=== PATIENT | male | born 1940 | race Caucasian/White ===

== ENCOUNTER 2018-10-17 03:28 | Inpatient (IN) | payer MEDICARE, OTHER ==
[2018-10-17] VITALS (8 sets, daily range): BP systolic 90–142; BP diastolic 47–72
[~2018-10-17] VITALS: Ht 165.1 cm; Wt 74.7 kg
[2018-10-17 03:44] LABS: GLUCOSE,POINT OF CARE 66 MG/DL (70-110)
[2018-10-17 04:04] LABS: GLUCOSE,POINT OF CARE 66 MG/DL (70-110)
[2018-10-17] MEDS ORDERED: DEXTROSE 50%-WATER 25 GM/50 ML SYRINGE IVP ONE (04:15)
[2018-10-17] MEDS ORDERED: ONDANSETRON HCL 4 MG/2 ML VIAL IVP ONE (04:15)
[2018-10-17 04:27] LABS: HEMATOCRIT 39.7 % (41-53); HEMOGLOBIN 13.4 g/dL (13.5-17.5); MEAN CORPUSCULAR HEMOGLOBIN 30.8 pg (26.0-34.0); MEAN CORPUSCULAR HGB CONC 33.8 G/dL (31.0-37.0); MEAN CORPUSCULAR VOLUME 91 fL (80-100); PLATELET COUNT (AUTO) 254 K/uL (150-450); RED BLOOD CELL COUNT(AUTO) 4.36 MIL/uL (4.50-5.90); RED CELL DISTRIBUTION WIDTH 19.7 % (11.5-14.5)
[2018-10-17 04:37] LABS: CALCIUM, TOTAL 8.4 mg/dL (8.8-10.5); CREATININE 13.05 mg/dL (0.60-1.30); POTASSIUM 5.6 mmol/L (3.5-5.1)
[2018-10-17 04:41] LABS: INR 1.4 (0.9-1.1)
[2018-10-17 04:49] LABS: BAND NEUTROPHILS % (MANUAL) 31 % (0-5); LYMPHOCYTES % (MANUAL) 4 % (22-44); MONOCYTES % (MANUAL) 5 % (2-9); SEGMENTED NEUTROPHILS % 60 % (40-70)
[2018-10-17 04:49] LABS: GLUCOSE,POINT OF CARE 169 MG/DL (70-110)
[2018-10-17 04:50] LABS: PLATELET MORPHOLOGY COMMENT GIANT PLTS PRESENT
[2018-10-17] MEDS ORDERED: AZITHROMYCIN 500 MG/NS 250 ML IV ONE (05:00)
[2018-10-17 05:03] LABS: ALBUMIN 1.2 g/dL (3.4-5.0); BILIRUBIN,TOTAL 5.4 mg/dL (0.1-1.0); TOTAL PROTEIN, SERUM 6.8 g/dL (6.4-8.2)
[2018-10-17] MEDS ORDERED: ACETAMINOPHEN 325 MG TABLET PO PRN (05:30)
[2018-10-17] MEDS ORDERED: ALBUTEROL SULFATE 2.5 MG/0.5 ML NEB SOLUTION NEB ONE (05:30)
[2018-10-17] MEDS ORDERED: IPRATROPIUM BROMIDE 0.5 MG/2.5 ML NEB SOLUTION NEB ONE (05:30)
[2018-10-17] MEDS ORDERED: SODIUM POLYSTYRENE SULFONATE 15 GM/60 ML SUSPENSION BOTTLE PO ONE (05:30)
[2018-10-17] MEDS ORDERED: ONDANSETRON HCL 4 MG/2 ML VIAL IVP PRN (05:30)
[2018-10-17] MEDS ORDERED: 0.9% SODIUM CHLORIDE 10 ML SYRINGE IVP PRN (05:30)
[2018-10-17] MEDS ORDERED: FUROSEMIDE 40 MG/4 ML VIAL IVP ONE (05:30)
[2018-10-17 05:40] LABS: LACTIC ACID 2.6 mmol/L (0.4-2.0)
[2018-10-17 05:53] LABS: INFLUENZA TYPE A NEGATIVE FOR TYPE A (NEGATIVE); INFLUENZA TYPE B NEGATIVE FOR TYPE B (NEGATIVE)
[2018-10-17] MEDS ORDERED: MAGNESIUM HYDROXIDE SUSPENSION 30 ML UDCUP PO PRN (06:00)
[2018-10-17] MEDS ORDERED: IPRATROPIUM BROMIDE 0.5 MG/2.5 ML NEB SOLUTION NEB PRN (06:00)
[2018-10-17] MEDS ORDERED: OxyCODONE HCL/ACETAMINOPHEN 5-325 MG TABLET PO PRN (06:00)
[2018-10-17] MEDS ORDERED: ZOLPIDEM TARTRATE 5 MG TABLET PO PRN (06:00)
[2018-10-17] MEDS ORDERED: IBUPROFEN 600 MG TABLET PO PRN (06:00)
[2018-10-17] MEDS ORDERED: BISACODYL 10 MG RECTAL RECTAL SUPPOSITORY PR PRN (06:00)
[2018-10-17] MEDS ORDERED: ALBUTEROL SULFATE 2.5 MG/0.5 ML NEB SOLUTION NEB PRN (06:00)
[2018-10-17 06:49] LABS: APPEARANCE,URINE CLOUDY (CLEAR); BILIRUBIN,URINE NEGATIVE (NEGATIVE); GLUCOSE, URINE (UA) NEGATIVE (NEGATIVE); KETONES,URINE NEGATIVE (NEGATIVE); LEUKOCYTE ESTERASE ,URINE NEGATIVE (NEGATIVE); NITRATE,URINE NEGATIVE (NEGATIVE); OCCULT BLOOD,URINE LARGE (NEGATIVE); PH,URINE 7.5 (5.0-8.0); PROTEIN,URINE POS 1+ (NEGATIVE); UROBILINOGEN,URINE 0.2 mg/dL (<=1.0)
[2018-10-17 06:58] LABS: BACTERIA,URINE Rare /HPF (None Seen); RBC,URINE >100 /HPF (0-2)
[2018-10-17 06:59] LABS: RENAL EPITHELIAL CELLS,URINE Few /LPF (None Seen); SQUAMOUS EPITHELIAL CELL,UR Rare /LPF (None Seen)
[2018-10-17 07:00] LABS: COARSE GRANULAR CASTS,URINE 0-2 /LPF (None Seen)
[2018-10-17] MEDS ORDERED: VANCOMYCIN HCL 1 GM/D5% WATER 200 ML IV PRN (07:30)
[2018-10-17] MEDS ORDERED: OXYGEN THERAPY IH SCH (08:00)
[2018-10-17] MEDS ORDERED: VANCOMYCIN HCL 1 GM/D5% WATER 200 ML IV ONE (08:00)
[2018-10-17] MEDS: PANTOPRAZOLE SODIUM 40 MG DR TABLET PO SCH (09:09)
[2018-10-17] MEDS ORDERED: SODIUM CHLORIDE 0.9% 250 ML IV ONE ×3 (09:12→19:56)
[2018-10-17] MEDS: LACTULOSE 20 GM/30 ML SOLUTION UDCUP PO SCH (11:40)
[2018-10-17] MEDS: CALCIUM ACETATE 667 MG CAPSULE PO SCH ×2 (12:00→17:30)
[2018-10-17] MEDS: ONDANSETRON HCL 4 MG/2 ML VIAL IVP PRN (12:05)
[2018-10-17] MEDS: PIPERACILLIN SODIUM/TAZOBACTAM 2.25 GM in DEXTROSE 5%-WATER 50 ML IV SCH ×2 (12:08→23:20)
[2018-10-17 14:47] LABS: ABG A-A DIFF O2 65.1 mmHg (10-20.0); ABG BASE EXCESS -8.3 mmol/L (-2.0-3.0); ABG HCO3 18.2 mmol/L (22.0-26.0); ABG METHEMOGLOBIN 0.3 % (0.0-1.5); ABG OXYHEMOGLOBIN 73.7 % (94.0-100.0); ABG PCO2 33 mmHg (35-45); ABG PH 7.341 (7.35-7.450); ABG TOTAL HEMOGLOBIN 13.5 G/dL (12.0-18.0); PO2, ARTERIAL BG 45.2 mmHg (75.0-83.0); SOURCE, BLOOD GAS ARTERIAL
[2018-10-17 14:49] LABS: ABG OXYGEN SATURATION 74.7 % (95.0-98.0); SITE, BLOOD GAS RT BRACHIAL
[2018-10-17 15:18] LABS: SPECIMENTYPE,BODY FLUID PERITONEAL
[2018-10-17] MEDS ORDERED: AMIODARONE HCL 150 MG in DEXTROSE 5%-WATER 97 ML IV ONE (15:50)
[2018-10-17] MEDS ORDERED: AMIODARONE HCL 360 MG in DEXTROSE 5%-WATER 242.8 ML IV ONE (16:00)
[2018-10-17] MEDS ORDERED: SODIUM CHLORIDE 0.9% 500 ML IV ONE (16:40)
[2018-10-17 16:46] LABS: APPEARANCE,UNSPUN,BODY FLUID HAZY (CLEAR); COLOR,BODY FLUID COLORLESS (LT YELLOW); TOTAL VOLUME,BODY FLUID 30 mL
[2018-10-17 16:49] LABS: ABG A-A DIFF O2 253.2 mmHg (10-20.0); ABG BASE EXCESS -8.4 mmol/L (-2.0-3.0); ABG CARBOXYHEMOGLOBIN 0.9 % (0.0-1.5); ABG HCO3 18.4 mmol/L (22.0-26.0); ABG METHEMOGLOBIN 0.1 % (0.0-1.5); ABG OXYGEN CONTENT 16.4 mL/dL (15.0-23.0); ABG OXYGEN SATURATION 89.7 % (95.0-98.0); ABG OXYHEMOGLOBIN 88.8 % (94.0-100.0); ABG PCO2 33 mmHg (35-45); ABG PH 7.344 (7.35-7.450); ABG TOTAL HEMOGLOBIN 13.1 G/dL (12.0-18.0); PO2, ARTERIAL BG 66.5 mmHg (75.0-83.0); SOURCE, BLOOD GAS ARTERIAL
[2018-10-17 16:50] LABS: APPEARANCE,SPUN,BODY FLUID CLEAR (CLEAR)
[2018-10-17 16:50] LABS: O2 DEVICE,BLOOD GAS VENTI MASK (ROOM AIR); SITE, BLOOD GAS LFT RADIAL
[2018-10-17 16:53] LABS: WBC, BODY FLUID 6 /cu. mm.
[2018-10-17 16:54] LABS: BASOPHILS,BODY FLUID 0 %; EOSINOPHILS,BF (ANAL) 0 %; LYMPHOCYTES,BODY FLUID 15 %; MONOCYTES,BODY FLUID 5 %; NEUTROPHILS,BODY FLUID 80 %; OTHER CELLS,BODY FLUID MESOTHELIALS
[2018-10-17] MEDS: NYSTATIN 500,000 UNITS/5 ML SUSPENSION UDCUP PO SCH (20:50)
[2018-10-17] MEDS: MORPHINE SULFATE 4 MG/ML SYRINGE IVP PRN (21:13)
[2018-10-17 21:24] LABS: CALCIUM, TOTAL 8.1 mg/dL (8.8-10.5); CREATININE 12.06 mg/dL (0.60-1.30); MAGNESIUM 2.2 mg/dL (1.80-2.40); POTASSIUM 5.2 mmol/L (3.5-5.1)
[2018-10-17] MEDS ORDERED: AMIODARONE HCL 540 MG in DEXTROSE 5%-WATER 239.2 ML IV ONE (22:00)
[2018-10-18] VITALS (10 sets, daily range): BP systolic 101–150; BP diastolic 23–69
[2018-10-18 05:08] LABS: HEMATOCRIT 38.1 % (41-53); HEMOGLOBIN 12.7 g/dL (13.5-17.5); MEAN CORPUSCULAR HEMOGLOBIN 29.9 pg (26.0-34.0); MEAN CORPUSCULAR HGB CONC 33.4 G/dL (31.0-37.0); MEAN CORPUSCULAR VOLUME 90 fL (80-100); PLATELET COUNT (AUTO) 239 K/uL (150-450); RED BLOOD CELL COUNT(AUTO) 4.25 MIL/uL (4.50-5.90); RED CELL DISTRIBUTION WIDTH 19.3 % (11.5-14.5)
[2018-10-18 05:11] LABS: INR 1.3 (0.9-1.1); PROTHROMBIN TIME 13.8 SEC (9.4-11.6)
[2018-10-18] MEDS: ONDANSETRON HCL 4 MG/2 ML VIAL IVP PRN ×2 (05:15→08:16)
[2018-10-18 05:32] LABS: ALBUMIN 1.1 g/dL (3.4-5.0); BILIRUBIN,TOTAL 6.2 mg/dL (0.1-1.0); CALCIUM, TOTAL 7.7 mg/dL (8.8-10.5); CREATININE 11.16 mg/dL (0.60-1.30); MAGNESIUM 2.2 mg/dL (1.80-2.40); PHOSPHORUS 6.6 mg/dL (2.5-4.9); POTASSIUM 4.6 mmol/L (3.5-5.1); THYROID STIMULATING HORMONE 2.16 uIU/mL (0.36-3.74); TOTAL PROTEIN, SERUM 6.3 g/dL (6.4-8.2)
[2018-10-18 05:43] LABS: BAND NEUTROPHILS % (MANUAL) 18 % (0-5); EOSINOPHILS % (MANUAL) 2 % (1-6); LYMPHOCYTES % (MANUAL) 6 % (22-44); METAMYELOCYTES % 1 % (0-0); MONOCYTES % (MANUAL) 2 % (2-9); SEGMENTED NEUTROPHILS % 71 % (40-70)
[2018-10-18 06:03] LABS: CHOL/HDL RATIO 11.7 (4.2-7.3)
[2018-10-18] MEDS ORDERED: FUROSEMIDE 40 MG/4 ML VIAL IVP SCH (09:00)
[2018-10-18] MEDS: PANTOPRAZOLE SODIUM 40 MG DR TABLET PO SCH (09:10)
[2018-10-18] MEDS: LACTULOSE 20 GM/30 ML SOLUTION UDCUP PO SCH (09:10)
[2018-10-18] MEDS: CALCIUM ACETATE 667 MG CAPSULE PO SCH ×3 (09:10→17:09)
[2018-10-18] MEDS: AZITHROMYCIN 500 MG/NS 250 ML IV SCH (09:10)
[2018-10-18] MEDS: BUMETANIDE 0.25 MG/ML 4 ML VIAL IVP SCH (09:11)
[2018-10-18] MEDS: NYSTATIN 500,000 UNITS/5 ML SUSPENSION UDCUP PO SCH ×3 (09:12→21:39)
[2018-10-18] MEDS ORDERED: VANCOMYCIN HCL 1 GM/D5% WATER 200 ML IV ONE (11:00)
[2018-10-18] MEDS: PIPERACILLIN SODIUM/TAZOBACTAM 2.25 GM in DEXTROSE 5%-WATER 50 ML IV SCH ×2 (12:54→23:39)
[2018-10-18] MEDS ORDERED: RINGERS SOLUTION,LACTATED 1,000 ML IV ONE (13:15)
[2018-10-18] MEDS ORDERED: IOVERSOL 350 MG/ML 100 ML VIAL ONE (15:02)
[2018-10-18] MEDS ORDERED: SODIUM CHLORIDE 0.9% 100 ML ONE ×2 (15:02→16:15)
[2018-10-18] MEDS ORDERED: AMIODARONE HCL 750 MG in DEXTROSE 5%-WATER 485 ML IV SCH (16:00)
[2018-10-18] MEDS ORDERED: IOVERSOL 320 MG/ML 100 ML VIAL ONE (16:15)
[2018-10-18] MEDS: MORPHINE SULFATE 4 MG/ML SYRINGE IVP PRN (23:40)
[2018-10-19] VITALS: BP 124/44
[2018-10-19] MEDS: ONDANSETRON HCL 4 MG/2 ML VIAL IVP PRN ×2 (02:47→08:33)
[2018-10-19 03:01] LABS: ABG A-A DIFF O2 609.6 mmHg (10-20.0); ABG BASE EXCESS -11.4 mmol/L (-2.0-3.0); ABG CARBOXYHEMOGLOBIN 0.6 % (0.0-1.5); ABG HCO3 15.5 mmol/L (22.0-26.0); ABG METHEMOGLOBIN 0.3 % (0.0-1.5); ABG OXYGEN CONTENT 14.6 mL/dL (15.0-23.0); ABG OXYHEMOGLOBIN 79.2 % (94.0-100.0); ABG PCO2 46 mmHg (35-45); ABG TOTAL HEMOGLOBIN 13.1 G/dL (12.0-18.0); PO2, ARTERIAL BG 57.4 mmHg (75.0-83.0); SOURCE, BLOOD GAS ARTERIAL; TEMPERATURE, FAHRENHEIT, BG 98.6 FAHREN (96.0-98.6)
[2018-10-19 03:02] LABS: ABG OXYGEN SATURATION 79.9 % (95.0-98.0); ABG PH 7.184 (7.35-7.450); O2 DEVICE,BLOOD GAS NON REBREATHER (ROOM AIR); SITE, BLOOD GAS RT RADIAL
[2018-10-19 03:24] LABS: HEMATOCRIT 41.7 % (41-53); HEMOGLOBIN 13.6 g/dL (13.5-17.5); MEAN CORPUSCULAR HEMOGLOBIN 30.3 pg (26.0-34.0); MEAN CORPUSCULAR HGB CONC 32.5 G/dL (31.0-37.0); MEAN CORPUSCULAR VOLUME 93 fL (80-100); PLATELET COUNT (AUTO) 219 K/uL (150-450); RED BLOOD CELL COUNT(AUTO) 4.48 MIL/uL (4.50-5.90); RED CELL DISTRIBUTION WIDTH 19.8 % (11.5-14.5)
[2018-10-19 03:35] LABS: CALCIUM, TOTAL 7.5 mg/dL (8.8-10.5); CREATININE 11.22 mg/dL (0.60-1.30); POTASSIUM 5.4 mmol/L (3.5-5.1)
[2018-10-19 03:40] VITALS: BP 125/61
[2018-10-19 03:41] LABS: ALBUMIN 0.9 g/dL (3.4-5.0); BILIRUBIN,TOTAL 7.2 mg/dL (0.1-1.0); TOTAL PROTEIN, SERUM 6.1 g/dL (6.4-8.2)
[2018-10-19] MEDS: MORPHINE SULFATE 4 MG/ML SYRINGE IVP PRN ×2 (03:41→09:05)
[2018-10-19 03:48] LABS: BAND NEUTROPHILS % (MANUAL) 45 % (0-5); EOSINOPHILS % (MANUAL) 2 % (1-6); LYMPHOCYTES % (MANUAL) 6 % (22-44); METAMYELOCYTES % 1 % (0-0); MONOCYTES % (MANUAL) 2 % (2-9); PLATELET MORPHOLOGY COMMENT GIANT PLTS PRESENT; SEGMENTED NEUTROPHILS % 44 % (40-70); WBC MORPHOLOGY TOXIC VACUOLATION
[2018-10-19 03:55] VITALS: BP 140/45
[2018-10-19 04:00] VITALS: BP 142/39
[2018-10-19] MEDS ORDERED: SODIUM BICARBONATE [ADULT] 8.4% 50 MEQ/50 ML SYRINGE IVP ONE ×2 (04:21→04:30)
[2018-10-19 08:00] VITALS: BP 133/92
[2018-10-19] MEDS: AZITHROMYCIN 500 MG/NS 250 ML IV SCH (08:29)
[2018-10-19] MEDS: CALCIUM ACETATE 667 MG CAPSULE PO SCH ×3 (08:30→17:30)
[2018-10-19] MEDS: PANTOPRAZOLE SODIUM 40 MG DR TABLET PO SCH (08:30)
[2018-10-19] MEDS: NYSTATIN 500,000 UNITS/5 ML SUSPENSION UDCUP PO SCH ×2 (08:30→16:00)
[2018-10-19] MEDS: LACTULOSE 20 GM/30 ML SOLUTION UDCUP PO SCH (08:31)
[2018-10-19] MEDS: BUMETANIDE 0.25 MG/ML 4 ML VIAL IVP SCH (08:32)
[2018-10-19 08:51] LABS: ABG A-A DIFF O2 612.3 mmHg (10-20.0); ABG BASE EXCESS -12.9 mmol/L (-2.0-3.0); ABG CARBOXYHEMOGLOBIN 0.7 % (0.0-1.5); ABG HCO3 14.5 mmol/L (22.0-26.0); ABG METHEMOGLOBIN 0.2 % (0.0-1.5); ABG OXYGEN CONTENT 15.7 mL/dL (15.0-23.0); ABG OXYHEMOGLOBIN 84.2 % (94.0-100.0); ABG PCO2 43 mmHg (35-45); ABG TOTAL HEMOGLOBIN 13.2 G/dL (12.0-18.0); PO2, ARTERIAL BG 60.8 mmHg (75.0-83.0); SOURCE, BLOOD GAS ARTERIAL; TEMPERATURE, FAHRENHEIT, BG 96.7 FAHREN (96.0-98.6)
[2018-10-19 08:52] LABS: ABG PH 7.177 (7.35-7.450); O2 DEVICE,BLOOD GAS BIPAP (ROOM AIR); SITE, BLOOD GAS RT BRACHIAL
[2018-10-19 08:53] LABS: SPONTANEOUS VT, BG 500 ml
[2018-10-19] MEDS ORDERED: SODIUM CHLORIDE 0.9% 250 ML IV ONE (09:07)
[2018-10-19] MEDS ORDERED: RAPID SEQUENCE KIT [RSI] 1 EACH KIT ONE (09:52)
[2018-10-19] MEDS ORDERED: VECURONIUM BROMIDE 10 MG/VIAL ONE (09:53)
[2018-10-19] MEDS ORDERED: ROCURONIUM BROMIDE 10 MG/ML 5 ML VIAL ONE ×2 (10:08→10:53)
[2018-10-19] MEDS ORDERED: ROCURONIUM BROMIDE 10 MG/ML 5 ML VIAL IVP ONE (10:40)
[2018-10-19] MEDS ORDERED: ETOMIDATE 2 MG/ML 10 ML VIAL IVP ONE (10:40)
[2018-10-19 11:03] LABS: GLUCOSE,POINT OF CARE 117 MG/DL (70-110)
[2018-10-19] MEDS ORDERED: NOREPINEPHRINE 4 MG/D5%-WATER 250 ML IV ONE (11:05)
[2018-10-19] MEDS ORDERED: NOREPINEPHRINE 4 MG/D5%-WATER 250 ML IV PRN (11:15)
[2018-10-19 12:00] VITALS: BP 105/44
[2018-10-19] MEDS: PIPERACILLIN SODIUM/TAZOBACTAM 2.25 GM in DEXTROSE 5%-WATER 50 ML IV SCH (12:13)
[2018-10-19 13:07] LABS: ABG BASE EXCESS -15.5 mmol/L (-2.0-3.0); SOURCE, BLOOD GAS ARTERIAL; TEMPERATURE, FAHRENHEIT, BG 98.6 FAHREN (96.0-98.6)
[2018-10-19 13:21] LABS: ABG A-A DIFF O2 599.6 mmHg (10-20.0); ABG CARBOXYHEMOGLOBIN 0.2 % (0.0-1.5); ABG HCO3 12.7 mmol/L (22.0-26.0); ABG METHEMOGLOBIN 0.4 % (0.0-1.5); ABG OXYGEN CONTENT 14.8 mL/dL (15.0-23.0); ABG OXYHEMOGLOBIN 83.3 % (94.0-100.0); ABG PCO2 47 mmHg (35-45); ABG TOTAL HEMOGLOBIN 12.6 G/dL (12.0-18.0); PO2, ARTERIAL BG 66.6 mmHg (75.0-83.0)
[2018-10-19 13:22] LABS: ABG OXYGEN SATURATION 83.8 % (95.0-98.0); ABG PH 7.099 (7.35-7.450); O2 DEVICE,BLOOD GAS VENTILATOR (ROOM AIR); PEEP,BG 8 cm H2O; SITE, BLOOD GAS RT BRACHIAL; VT, ABG 500 ml
[2018-10-19] MEDS ORDERED: PROPOFOL 1000 MG/ISO-OSM 100 ML IV PRN (13:30)
[2018-10-19] MEDS ORDERED: SODIUM CHLORIDE 0.9% 2,000 ML IV ONE (13:51)
[2018-10-19 13:58] LABS: CREATININE 10.98 mg/dL (0.60-1.30); POTASSIUM 4.9 mmol/L (3.5-5.1)
[2018-10-19] MEDS ORDERED: ETOMIDATE 2 MG/ML 10 ML VIAL IV ONE (17:21)
[2018-10-19] MEDS ORDERED: ROCURONIUM BROMIDE 10 MG/ML 5 ML VIAL IV ONE (17:21)
[2018-10-22 01:07] LABS: QUANTIFERON+, Nil Value 0.36 IU/mL; QUANTIFERON+,Mitogen Value 0.97 IU/mL; QUANTIFERON+,TB1 Antigen Value 0.42 IU/mL; QUANTIFERON+,TB2 Antigen Value 0.43 IU/mL; QUANTIFERON, TB GOLD PLUS Negative (Negative)
[2018-10-24 04:06] LABS: MTB NUCL.ACID AMPLIF W/O AFBCS Negative (Negative)
== END 2018-10-19 15:42 | disposition expired | DRG 871 ==
LOC: EMS 03:28 → 5S 05:00 → 5N 10:05 → ICU 16:10
PROVIDERS: ADMIT Internal Medicine; ATTEND Internal Medicine
PROC: 5A1D70Z Performance of Urinary Filtration, Intermittent, Less than 6 Hours Per Day (ICD-10-PCS; 2018-10-17)
PROC: 02H633Z Insertion of Infusion Device into Right Atrium, Percutaneous Approach (ICD-10-PCS; principal; 2018-10-19)
PROC: 0BH17EZ Insertion of Endotracheal Airway into Trachea, Via Natural or Artificial Opening (ICD-10-PCS; 2018-10-19)
PROC: 5A09357 Assistance with Respiratory Ventilation, Less than 24 Consecutive Hours, Continuous Positive Airway Pressure (ICD-10-PCS; 2018-10-19)
PROC: 5A1935Z Respiratory Ventilation, Less than 24 Consecutive Hours (ICD-10-PCS; 2018-10-19)
DX: A41.9 Sepsis, unspecified organism (principal); N18.6 End stage renal disease; K76.7 Hepatorenal syndrome; J18.1 Lobar pneumonia, unspecified organism; J96.01 Acute respiratory failure with hypoxia; R65.21 Severe sepsis with septic shock; E87.1 Hypo-osmolality and hyponatremia; E44.0 Moderate protein-calorie malnutrition; D68.59 Other primary thrombophilia; E87.2 Acidosis; G93.40 Encephalopathy, unspecified; I13.2 Hypertensive heart and chronic kidney disease with heart failure and with stage 5 chronic kidney disease, or end stage renal disease; Z99.11 Dependence on respirator [ventilator] status; I50.9 Heart failure, unspecified; E87.5 Hyperkalemia; E16.2 Hypoglycemia, unspecified; E87.6 Hypokalemia; I46.9 Cardiac arrest, cause unspecified; Z66 Do not resuscitate; Z99.2 Dependence on renal dialysis; Z86.79 Personal history of other diseases of the circulatory system; Z79.899 Other long term (current) drug therapy; Z68.27 Body mass index [BMI] 27.0-27.9, adult
CPT/HCPCS: 51702; 70450; 70491; 71250; 76700; 80074; 82805; 83605; 83615; 83735; 84100; 84145; 84443; 86480; 87015; 87040; 87070; 87081; 87206; 87430; 87556; 87804; 89051; 92526; 92610; 93005; 93306; 94002; 94640; 94660; 94799; 96365; 96375; 96376; 99291; G0378; J0282; J0456; J1940; J2270; J2405; J2543; J3370; J3490; J7030; J7040; J7050; J7060; J7120